=== PATIENT | female | born 1935 | race Caucasian/White ===

== ENCOUNTER 2016-08-09 10:53 | Inpatient (IN) | payer MEDICARE, OTHER ==
[~2016-08-09 10:53] MED LIST: BACTRIM DS TAB1 EAC2 PO; BOOST237 ML PO; FENOFIBRATE160 MG PO; FISH OIL 1,2001 EAC5 PO; LISINOPRIL2.5 M1 PO; PROGRAF1 M1 PO; ULTRAM50 M1 PO
[2016-08-09 12:29] LABS: BASO % 0.5 % (0-2); EOS % 0.9 % (0-7); EOSINOPHIL ABSOLUTE COUNT 0.1 tho/cmm (0.0-0.7); HCT-HEMATOCRIT 35.1 % (34.0-49.0); HGB-HEMOGLOBIN 12.4 gm/dl (12.0-15.5); IMMATURE GRANULOCYTES ABSOLUTE 0.01 tho/cmm (0-0.03); IMMATURE GRANULOCYTES PERCENT 0.2 % (0-0.3); LYMPH % 26.9 % (20-45); LYMPH ABSOLUTE COUNT 1.5 tho/cmm (0.8-4.5); MCH (MEAN CORPUSCULAR HGB) 28.3 pg (28.0-32.0); MCHC MEAN CORPUSCULAR HGB CONC 35.3 % (32.0-36.0); MCV (MEAN CELL VOLUME) 80.1 fl (82.0-96.0); MEAN PLATELET VOLUME 8.5 cmc (9.4-12.4); MONOCYTE ABSOLUTE COUNT 0.4 tho/cmm (0.0-1.2); NEUTROPHIL ABSOLUTE COUNT 3.7 tho/cmm (1.6-8.0); NEUTROPHIL-AUTOMATED 3.7 tho/cmm (1.6-8.0); NEUTROPHILS % 64.5 % (40-80); PLATELET COUNT 199 tho/cmm (150-450); RED BLOOD COUNT 4.38 mil/cmm (4.00-5.20); RED CELL DISTRIBUTION WIDTH 13.7 % (12.4-16.4); WHITE BLOOD COUNT 5.7 tho/cmm (4.0-10.0)
[2016-08-09 12:35] LABS: ANION GAP 15 mmol/L (0-20); BLOOD UREA NITROGEN 17 mg/dl (6-24); CALCIUM 9.8 mg/dl (8.5-10.5); CARBON DIOXIDE-VENOUS 27 mmol/L (22-32); CHLORIDE 93 mmol/l (96-110); GLUCOSE 103 mg/dL (70-110); SODIUM 131 mmol/L (135-145); eGFR VALUE FOR BLACK 50 mL/Min
[2016-08-10 04:36] LABS: ANION GAP 13 mmol/L (0-20); BLOOD UREA NITROGEN 23 mg/dl (6-24); CARBON DIOXIDE-VENOUS 28 mmol/L (22-32); CHLORIDE 94 mmol/l (96-110); CREATININE 1.13 mg/dl (0.50-1.10); GLUCOSE 130 mg/dL (70-110); POTASSIUM 3.8 mmol/L (3.7-5.1); SODIUM 131 mmol/L (135-145); eGFR VALUE FOR BLACK 54 mL/Min
[2016-08-11 07:15] LABS: ALB/GLOB RATIO 0.9 (0.8-2.0); ALBUMIN 3.4 g/dl (3.5-5.0); ALKALINE PHOSPHATASE 39 U/L (33-138); ALT/SGPT 16 U/L (12-78); ANION GAP 15 mmol/L (0-20); AST/SGOT 20 U/L (10-40); BILIRUBIN,DIRECT 0.2 mg/dl (0.0-0.3); BILIRUBIN,INDIRECT 0.6 mg/dL (0.0-1.0); BILIRUBIN,TOTAL 0.8 mg/dl (0-1.5); BLOOD UREA NITROGEN 17 mg/dl (6-24); CALCIUM 9.1 mg/dl (8.5-10.5); CARBON DIOXIDE-VENOUS 29 mmol/L (22-32); CHLORIDE 90 mmol/l (96-110); CREATININE 1.08 mg/dl (0.50-1.10); POTASSIUM 3.8 mmol/L (3.7-5.1); SODIUM 130 mmol/L (135-145); eGFR VALUE FOR BLACK 57 mL/Min
[2016-08-11 07:18] LABS: GLUCOSE 208 mg/dL (70-110)
[2016-08-11] MEDS ORDERED: ROBAXIN-750750 M1 PO (12:03)
[2016-08-11] MEDS ORDERED: ROXICODONE5 M2 PO (12:05)
[2016-08-11] MEDS ORDERED: SENNA8.6 M2 PO (12:10)
== END 2016-08-11 14:21 | disposition home health service (06) | DRG 459 ==
LOC: SHSB 10:53 → ORE 13:10 → PACU 16:21 → 5EA 17:48
PROVIDERS: Anesthesiology; Internal Medicine; ADMIT Neurological Surgery
PROC: 0SG00A1 (ICD-10-PCS; principal; 2016-08-09)
PROC: 0QB00ZZ Excision of Lumbar Vertebra, Open Approach (ICD-10-PCS; 2016-08-09)
PROC: 0SG00AJ Fusion of Lumbar Vertebral Joint with Interbody Fusion Device, Posterior Approach, Anterior Column, Open Approach (ICD-10-PCS; 2016-08-09)
DX: M43.16 Spondylolisthesis, lumbar region (principal); G92 Toxic encephalopathy; Z94.4 Liver transplant status; E11.22 Type 2 diabetes mellitus with diabetic chronic kidney disease; N18.3 Chronic kidney disease, stage 3 (moderate); E87.1 Hypo-osmolality and hyponatremia; N30.00 Acute cystitis without hematuria; M48.06 Spinal stenosis, lumbar region; M54.16 Radiculopathy, lumbar region; I12.9 Hypertensive chronic kidney disease with stage 1 through stage 4 chronic kidney disease, or unspecified chronic kidney disease; K59.00 Constipation, unspecified
CPT/HCPCS: J0690; J1170; J2800; J3010; J3370; J7050; J7507